=== PATIENT | male | born 1960 | race Caucasian/White ===

== ENCOUNTER 2023-11-15 12:14 | Emergency (ER) | payer BC, OTHER ==
[~2023-11-15] VITALS: Ht 180.3 cm; Wt 121.6 kg
[2023-11-15 13:15] VITALS: PULSE 84; RESP 16; O2SAT 100
[2023-11-15] MEDS: ALBUTEROL SULF 2.5 MG/0.5ML(0.5%) NEB SOLN NEB ONE (13:24)
[2023-11-15] MEDS: BUDESONIDE (INHALATION) 0.5 MG/2 ML NEB NEB ONE (13:24)
[2023-11-15] MEDS: IPRATROPIUM BROM 0.5 MG/2.5ML INH SOL NEB ONE (13:24)
[2023-11-15 13:46] LABS: Basophils # (auto) 0.1 10 ^3/uL (0-0.2); Basophils % (auto) 1.1 % (0.0-2.0); Eosinophils # (auto) 0.8 10 ^3/uL (0-0.8); Eosinophils % (auto) 9.3 % (0.0-7.0); Hematocrit 47.6 % (41.0-53.0); Hemoglobin 16.4 g/dL (13.5-17.5); Lymphocytes # (auto) 1.9 10 ^3/uL (0.4-5.4); Mean Corpuscular Hemoglobin 33.4 pg (28.0-32.0); Mean Corpuscular Hgb Conc. 34.5 g/dL (32.0-36.0); Monocytes # (auto) 0.8 10 ^3/uL (0-1.3); Monocytes % (auto) 9.6 % (0.0-12.0); Neutrophils # (auto) 5.1 10 ^3/uL (1.6-8.6); Red Blood Cells 4.91 10^6/uL (4.5-5.90); White Blood Cell 8.8 10^3/uL (4.4-10.8)
[2023-11-15 14:07] LABS: Alanine Aminotransferase 37 U/L (7-40); Albumin 4.4 g/dL (3.2-4.8); Alkaline Phosphatase 89 U/L (46-116); Anion Gap 7 (5-15); Aspartate Aminotransferase 18 U/L (13-40); BUN/Creatinine Ratio 20.6 (10.0-20.0); Blood Urea Nitrogen 20 mg/dL (9-23); Calcium 10.1 mg/dL (8.5-10.1); Carbon Dioxide 25 mmol/L (20-30); Chloride 106 mmol/L (98-107); Glucose 97 mg/dL (74-106); Potassium 4.6 mmol/L (3.5-5.1); Sodium 138 mmol/L (136-145); Total Protein 6.7 g/dL (5.7-8.2)
[2023-11-15] MEDS: IOHEXOL 350 MG/ML 100ML IJ ONE (15:10)
[2023-11-15 15:13] LABS: COVID19 ANTIGEN SOFIA FIA NEGATIVE (NEGATIVE)
[2023-11-15 15:14] LABS: Rapid Influenza A Negative (Negative); Rapid Influenza B Negative (Negative)
[2023-11-15] MEDS ORDERED: BENZ200C64 PO (17:29)
[2023-11-15] MEDS ORDERED: ALBUAER3 IN (17:29)
[2023-11-15] MEDS ORDERED: DEX4T PO (17:29)
[2023-11-15] MEDS ORDERED: AMOX875T4 PO (17:29)
[2023-11-15 17:56] VITALS: BP 158/77; PULSE 73; RESP 20; TEMP 97.4; O2SAT 95
[2023-11-15] MEDS: AMOXICILLIN/CLAVUL 875 MG TAB PO ONE (18:03)
== END 2023-11-15 18:05 | disposition home or self-care (01) ==
LOC: ER 12:14
DX: J44.1 Chronic obstructive pulmonary disease with (acute) exacerbation (principal); F17.200 Nicotine dependence, unspecified, uncomplicated; Z20.822 Contact with and (suspected) exposure to COVID-19
CPT/HCPCS: 36415; 71045; 71275; 80053; 83880; 84484; 85025; 85379; 87426; 87804; 93005; 94640; 99285; J7644; Q9967